=== PATIENT | male | born 1960 | race Caucasian/White ===

== ENCOUNTER → 2023-10-24 06:55 | Outpatient (REF) | payer BC, SELFPAY | LOC: HWRAD 06:55 | PROVIDERS: ATTENDING PHYSICIAN Student in an Organized Health Care Education/Training Program | DX: R10.9 Unspecified abdominal pain (principal); M54.50 Low back pain, unspecified | CPT/HCPCS: 72100; 74176 ==

== ENCOUNTER → 2023-12-18 | Outpatient (REF) | payer BC, SELFPAY | LOC: DHSLP | PROVIDERS: ATTENDING PHYSICIAN Internal Medicine; FAMILY PHYSICIAN Family Medicine | DX: G47.33 Obstructive sleep apnea (adult) (pediatric) (principal) | CPT/HCPCS: 95800 ==

== ENCOUNTER 2025-01-15 11:16 | Emergency (ER) | payer BC, SELFPAY ==
[2025-01-15 11:21] VITALS: BP 168/82
[2025-01-15 13:20] VITALS: BP 159/88
[2025-01-15 13:28] LABS: % Basophils 0.5 % (0-2); % Eosinophils 2.6 % (0-6); % Immature Granulocytes 0.3 % (0-0.5); % Lymphocytes 21.1 % (20.5-51.1); % Monocytes 6.7 % (1.7-9.3); % Neutrophils 68.8 % (42.2-75.2); Absolute Basophils 0.1 10^3/uL (0-0.2); Absolute Eosinophils 0.3 10^3/uL (0-0.7); Absolute Lymphocytes 2.2 10^3/uL (1.2-3.4); Absolute Monocytes 0.7 10^3/uL (0.1-0.6); Absolute Neutrophils 7.2 10^3/uL (1.4-6.5); Hematocrit 43.3 % (39.0-52.0); Hemoglobin 15.7 g/dL (13.0-18.0); Mean Corp Hgb Conc. 36.3 g/dL (33.0-37.0); Mean Corpuscular Hgb 32.7 pg (27.0-31.0); Mean Corpuscular Volume 90.2 fL (80.0-94.0); Mean Platelet Volume 8.7 fL (7.4-10.4); Nucleated Red Blood Cells % 0 % (-); Platelet Count 245 10^3/uL (130-400); Red Cell Dist. Width 12.8 % (11.5-14.5); White Blood Cell Count 10.5 10^3/uL (4.8-10.8)
[2025-01-15 13:37] LABS: Erythrocyte Sed Rate 10 mm/hour (0-20)
[2025-01-15 13:56] LABS: Blood Urea Nitrogen 9 mg/dl (9-20); Calcium 8.9 mg/dl (8.4-10.2); Carbon Dioxide 24 mmol/L (22-30); Chloride 109 mmol/L (98-107); Glucose 98 mg/dl (70-99); Potassium 4.2 mmol/L (3.5-5.1); Sodium 139 mmol/L (135-145); eGFR > 60.00
[2025-01-15 16:04] VITALS: BP 155/93
--- NOTE | 2025-01-15 16:22 | CON.NEURO ---
Neuro Assessment/Plan
Assessment
history and exam would be bilateral left more than right 6 nerve palsy, as if this were just a left 6th the images should converge with right gaze.
usually bilateral 6 nerve palsy would be seen with either elevated or decreased ICP, but no headache or vomiting
I requested brain MRI w/o and w/ contrast, done in ED showing mild microvascular changes
I have no idea the cause of this apparent bilateral 6 nerve palsy, or any other workup that I can think of. I believe that it will most likely get better on it's own like the usual 6 nerve palsy does.
so believe that he can be discharged.
Consultation
Order
Date of Consultation: 01/15/25
Requesting Provider: Yoan Peañ
Reason for Consult: blurry vision, diplopia
Subjective/Objective
Subjective Data
Date of Service: January 15, 2025
64 year old man with a week of blurry vision, then a few days later diplopia. sent by Dr Nelson for concerns of 6 nerve palsy. Patient states left eye is blurry entire field, closes left eye and the right eye sees normally. binocular diplopia,
always horizontal, diverge with left gaze but don't converge with any gaze direction. no headaches, vomiting, speech changes, weakness, numbness.
Objective Data
Vital Signs
Temp Pulse Resp BP Pulse Ox
36.8 C 78 16 155/93 98
01/15/25 11:21 01/15/25 16:04 01/15/25 16:04 01/15/25 16:04 01/15/25 16:04
Lab Results
01/15/25 13:18
01/15/25 13:18
Sodium 139 mmol/L (135-145) 01/15/25 13:18
Potassium 4.2 mmol/L (3.5-5.1) 01/15/25 13:18
BUN 9 mg/dl (9-20) 01/15/25 13:18
Glucose 98 mg/dl (70-99) 01/15/25 13:18
Calcium 8.9 mg/dl (8.4-10.2) 01/15/25 13:18
Patient Allergies
No Known Allergies Allergy (Verified 01/15/25 11:20)
Physical Exam
-
AAOx3, speech clear, language intact
VFF, EOMI, face symmetric
full strength b/l UE/LE
symmetric loss of pin/vibration in hands, legs
DTR 1+
Medications
-
Home Medications
�Medication �Instructions �Recorded
cephalexin 500 mg capsule 500 mg PO BID #20 caps 02/06/18
cephalexin 500 mg capsule 500 mg PO QID #28 caps 12/07/18
hydrocodone 5 mg-acetaminophen 325 1 tab PO Q4HPRN PRN pain #8 tabs 12/07/18
mg tablet
sulfamethoxazole 800 1 tab PO NOW #14 tabs 12/07/18
mg-trimethoprim 160 mg tablet
--- NOTE | 2025-01-15 18:42 | ED.GENMED ---
History of Present Illness
General
Chief Complaint: Visual Problem
Source: patient
Exam Limitations: none
Time Seen by Provider: 01/15/25 12:50
History of Present Illness
History of Present Illness:
Patient with 5 days of double vision. No headache no nausea vomiting chest pain shortness of breath or other neurologic symptoms. Seen by ophthalmology with concern for 6th nerve palsy and sent in for further evaluation
Past History
Past History
ED Past Medical History: Other (peripheral neuropathy)
ED Past Surgical History: Orthopedic and Other (Cervical spine fusion)
Patient has exhibited threatening behavior?: No
Social History
Tobacco: Non-smoker
Personal:
Living: with family
Employment: Employed
Review of Systems
Review of Systems
All Other Systems: Not applicable
Constitutional: Denies fever or chills
Respiratory: Reports no symptoms
Cardiac: Reports no symptoms
Neurological: Denies dizzy, headache, weakness or numbness
Phy Exam
Physical Exam
Physical Exam:
GENERAL: Alert and oriented in no apparent distress. Gait normal
EYE: Orbits normal.
NECK: Supple, no significant adenopathy.
CARDIAC: Regular rate and rhythm without any obvious murmurs.
LUNGS: Clear breath sounds,normal
ABDOMEN: Soft, without focal tenderness or distention
NEUROLOGICAL: Alert and oriented , gait normal. Speech normal. Nonfocal. Strength normal. Binocular nerve palsy.
SKIN: Warm and dry, no rash or lesion, no discoloration, skin intact.
MUSCULOSKELETAL: No edema,no deformity.Good color
PSYCH: Normal and appropriate interaction.
Course
Orders/Labs/Results
Orders:
Orders
01/15/25 13:12
IV Insert/Care/Rem.- Treatment PRN
01/15/25 13:18
Basic Metabolic Panel Urgent
Complete Blood Count/With Diff Urgent
Erythrocyte Sed Rate Urgent
Lyme Progressive Urgent
01/15/25 15:27
MR Brain W/o & With Contrast Urgent
Comment:
Reason For Exam: Bilateral 6th nerve palsy
Recent pill cam endoscopy?: No
Abnormal Lab Results
01/15/25
13:18
MCH 32.7 H pg
(27.0-31.0)
Absolute Neuts (auto) 7.2 H 10^3/uL
(1.4-6.5)
Absolute Monos (auto) 0.7 H 10^3/uL
(0.1-0.6)
Chloride 109 H mmol/L
(98-107)
01/15/25 13:18
01/15/25 13:18
Vital Signs
Initial and Last Documented VS:
Initial Vital Signs
Temp Pulse Resp BP Pulse Ox
98.2 F 86 16 168/82 98
01/15/25 11:21 01/15/25 11:21 01/15/25 11:21 01/15/25 11:21 01/15/25 11:21
Last Documented Vital Signs
Temp Pulse Resp BP Pulse Ox
97.9 F 78 16 155/93 98
01/15/25 19:32 01/15/25 16:04 01/15/25 16:04 01/15/25 16:04 01/15/25 16:04
MDM/Problems Addressed
Differential Diagnosis Includes:
Bilateral 60 palsy. Discussed with neurology. MRI pending. Medically stable and nontoxic.
*Radiology
Radiology exam reviewed: radiology read reviewed (Chronic microangiopathic ischemia)
*Pulse Oximetry
Patient hypoxic: no (98%)
*Critical Care Note
Total Time (30-74mins, 75-104mins- exclusive of procedures): Not Applicable
Update Note
Update Note:
Report reviewed with neurology. No indication for admission or further testing. They just recommended follow-up with the Lyme titer. Discussed with patient and . I do feel a baby aspirin today is reasonable.
ED Attending Note
-
Portions of this chart may have been created with voice recognition software.� Occasional wrong word or��sound alike� substitutions may have occurred due to the inherent limitations of voice recognition software.
Discharge Plan
Departure
Patient Disposition: Home (Routine Discharge)
Date of Disposition: 01/15/25
Time of Disposition: 19:55
Patient with high blood pressure during this ER visit?: Yes
Discharge Problem:
6th cranial nerve palsy
Instructions: Double Vision (DC), BLOOD PRESSURE
Prescriptions:
No Action
cephalexin 500 MG capsule
500 mg PO BID Qty: 20 0RF
sulfamethoxazole-trimethoprim 1 TABLET tablet
1 tab PO NOW Qty: 14 0RF
cephalexin 500 MG capsule
500 mg PO QID Qty: 28 0RF
hydrocodone-acetaminophen 1 TABLET tablet
1 tab PO Q4HPRN PRN (Reason: pain) Qty: 8 0RF
Referrals:
Jaimee Stafford DO [Family Provider, Family Practice] - Follow up in 2-3 days
Activity Restrictions/Additional Instructions:
As we discussed, make sure you follow-up your Lyme titer
I would recommend taking a baby aspirin per day
Look online for some eye muscle exercises
As we discussed, return immediately with any new neurologic symptoms speech issues gait issues weakness numbness unusual headache or any other concerning symptoms
Interventions
Interventions:
*Risk Screen - Suicide Last Done: 01/15/25 11:21
*General Assessment Last Done: 01/15/25 13:08
*Neglect/Abuse Screening Last Done: 01/15/25 11:21
*ED- Fall Risk Assessment Last Done: 01/15/25 13:08
*ED COVID-19 Vaccine History Last Done: 01/15/25 13:08
ED- Neurological Assessment Last Done: 01/15/25 13:08
ED-EENT Assessment Last Done: 01/15/25 13:08
ED Swallowing Screen Last Done: 01/15/25 13:08
Discharge Date and Time
Print Language: SPANISH
[2025-01-18 13:57] LABS: Lyme Antibody Screen, EIA Negative (Negative)
== END 2025-01-15 20:30 | disposition home or self-care (01) ==
LOC: EMR 11:16
PROVIDERS: EMERGENCY PHYSICIAN Emergency Medicine; FAMILY PHYSICIAN Family Medicine
DX: H49.20 Sixth [abducent] nerve palsy, unspecified eye (principal); Z98.1 Arthrodesis status
CPT/HCPCS: 99284; 70553; 80048; 85025; 85652; 86618; A9575